=== PATIENT | male | born 1935 | race Two or more races ===

== ENCOUNTER 2018-10-16 11:01 | Emergency (ER) | payer OTHER ==
[~2018-10-16] VITALS: Ht 175.3 cm; Wt 81.6 kg
== END 2018-10-16 18:47 | disposition home or self-care (01) ==
LOC: ER 11:01
DX: G45.8 Other transient cerebral ischemic attacks and related syndromes (principal)

== ENCOUNTER 2018-10-17 15:50 | Outpatient (CLI) | payer OTHER | END 2018-10-17 16:00 | disposition home or self-care (01) | LOC: NUCLEAR 15:50 | DX: G45.9 Transient cerebral ischemic attack, unspecified (principal) ==